=== PATIENT | female | born 1985 | race Caucasian/White ===

== ENCOUNTER → 2020-07-23 15:54 | Outpatient (CLI) | payer OTHER, SELFPAY ==
[2016-07-21 14:47] VITALS: BMI 47.5
[2020-07-27 12:27] LABS: HPV Reflexed? NOT INDICATED
[2020-07-29 07:44] LABS: Chlamydia By Nucleic Acid AMP Negative (Negative)
[2020-07-29 08:03] LABS: Gonococcus By Nucleic Acid AMP Negative (Negative)
== END ==
PROVIDERS: Visit Provider Obstetrics & Gynecology
DX: O20.0 Threatened abortion (principal); Z12.4 Encounter for screening for malignant neoplasm of cervix; Z11.3 Encounter for screening for infections with a predominantly sexual mode of transmission; Z3A.00 Weeks of gestation of pregnancy not specified
CPT/HCPCS: 36415; 84702; 87491; 87591; 88175; G0145

== ENCOUNTER → 2020-08-13 16:56 | Outpatient (CLI) | payer OTHER, SELFPAY ==
[2016-07-21 14:47] VITALS: BMI 47.5
[2020-08-13 17:56] LABS: Color, Urine Straw (Yellow); Glucose, Dipstick Normal (Normal); Ketone-Dipstick Negative (Negative); Leukocyte Esterase-Dipstick Negative /ul (Negative); Nitrite-Dipstick Negative (Negative); Occult Blood-Urine Negative /ul (Negative); Protein-Dipstick Negative (Negative); Urine Bilirubin Dipstick Negative (Negative); Urine Clarity Clear (Clear); Urine Urobilinogen Normal (Normal)
[2020-08-13 18:01] LABS: Absolute Lymphocyte Count 2.96 X10^3/uL (0.83-4.51); Absolute Neutrophil Count 6.5 X10^3/uL (2.0-7.7); Basophil# 0.03 X10^3/uL; Basophil% 0.3 % (0-1); Eosinophil# 0.14 X10^3/uL; Eosinophils% 1.4 % (0-5); Hematocrit 39.4 % (37-47); Hemoglobin 13.1 g/dL (12.0-15.0); Lymphocyte # 2.96 X10^3/ul (4.0); Lymphocyte % 28.7 % (19-41); Mean Corp Hgb Conc 33.2 g/dL (32-36); Mean Corpuscular Volume 96.1 fL (81-99); Mean Platelet Vol. 10.8 fl (6.2-12.0); Monocyte% 5.8 % (0-10); NRBC Flagged by Analyzer 0 % (0-5); Neutrophil # 6.52 X10^3/uL (2.7-7.7); Neutrophil % 63.3 % (47-70); Platelet Count 263 K/mm3 (150-450); RBC Distribution Width CV 12.3 % (11.6-14.6); RBC Distribution Width SD 43.5 fl (35.1-43.9); White Blood Count 10.3 K/mm3 (4.4-11.0)
[2020-08-13 18:33] LABS: Thyroid Stim Hormone (TSH) 6.23 uIU/mL (0.358-3.74)
[2020-08-13 19:04] LABS: Amphetamine Urine VISTA NEGATIVE (<1000 ng/mL); Barbiturate Urine VISTA NEGATIVE (< 200 ng/mL); Benzodiazepine Urine VISTA NEGATIVE (< 200 ng/mL); Cocaine Urine VISTA NEGATIVE (< 300 ng/mL); Ecstacy Urine VISTA NEGATIVE (< 500 ng/mL); Methadone Urine VISTA NEGATIVE (< 300 ng/mL); PCP Urine VISTA NEGATIVE (< 25 ng/mL); THC Urine VISTA NEGATIVE (< 50 ng/mL); Vista UDS pH Range 6
[2020-08-14 01:11] LABS: Prenatal RPR NONREACTIVE (NONREACTIVE)
[2020-08-14 10:22] LABS: HIV - WCH Non-Reactive (Nonreactive); Hepatitis B Surface Antigen Non-Reactive (Nonreactive); Hepatitis C Antibody Non-Reactive (Nonreactive)
[2020-08-14 10:25] LABS: Rubella IgG 212.2 IU/mL
[2020-08-14 12:29] LABS: Free T3 2.2 pg/mL (2.18-3.98); T4 Free Direct 0.88 ng/dL (0.76-1.46)
== END ==
LOC: WOBLAB 17:04
PROVIDERS: Visit Provider Obstetrics & Gynecology
DX: Z34.81 Encounter for supervision of other normal pregnancy, first trimester (principal); E03.9 Hypothyroidism, unspecified
CPT/HCPCS: 36415; 80307; 81002; 84439; 84443; 84481; 85025; 86703; 86762; 86803; 87340

== ENCOUNTER → 2020-12-09 12:59 | Outpatient (CLI) | payer OTHER, SELFPAY ==
[2016-07-21 14:47] VITALS: BMI 47.5
[2020-12-09 13:46] LABS: Mean Corp Hgb Conc 32.4 g/dL (32-36); Mean Corpuscular Hgb 31.3 pg (27.0-32.0); Mean Corpuscular Volume 96.9 fL (81-99); Mean Platelet Vol. 10.7 fl (6.2-12.0); Platelet Count 252 K/mm3 (150-450); RBC Distribution Width CV 12.5 % (11.6-14.6); RBC Distribution Width SD 44.6 fl (35.1-43.9); Red Blood Count 3.51 M/mm3 (4.2-5.4); White Blood Count 12.9 K/mm3 (4.4-11.0)
[2020-12-09 14:29] LABS: Glucose Challenge Gest 1H 50g 116 mg/dL (70-140)
== END ==
PROVIDERS: Visit Provider Obstetrics & Gynecology
DX: Z34.82 Encounter for supervision of other normal pregnancy, second trimester (principal)
CPT/HCPCS: 36415; 82950; 85027

== ENCOUNTER → 2021-02-09 | Outpatient (CLI) | payer OTHER, SELFPAY ==
[2016-07-21 14:47] VITALS: BMI 47.5
== END | disposition home or self-care (01) ==
LOC: LABSPEC 15:42
PROVIDERS: Visit Provider Obstetrics & Gynecology
DX: Z36.85 Encounter for antenatal screening for Streptococcus B (principal)
CPT/HCPCS: 87081

== ENCOUNTER → 2021-02-25 14:09 | Outpatient (CLI) | payer OTHER, SELFPAY | PROVIDERS: Referring Provider Student in an Organized Health Care Education/Training Program; Visit Provider Student in an Organized Health Care Education/Training Program | DX: Z03.818 Encounter for observation for suspected exposure to other biological agents ruled out (principal) | CPT/HCPCS: 87635; C9803; U0002 ==

== ENCOUNTER 2021-02-25 22:22 | Inpatient (IN) | payer OTHER, SELFPAY ==
[2016-07-21 14:47] VITALS: BMI 47.5
[2021-02-25 21:57] VITALS: PULSE 104; O2SAT 97
[2021-02-25 22:00] VITALS: TEMP 36.7; BMI 56.2
[2021-02-25 22:02] VITALS: BP 155/81
[2021-02-25] MEDS: Lactated Ringers 1,000 ML 999 ML IV (22:28)
[2021-02-25 22:36] LABS: ROM Internal Control Test YES-OK TO RESULT pt. (Internal QC); ROM Patient Test POSITIVE (Negative)
--- NOTE | 2021-02-25 23:02 | PCM.HP.BLA ---
History and Physical Date of Admission: 02/25/21 ACOG ANTEPARTUM RECORD - HISTORY AND PHYSICAL (02/25/2021) Name: MARIA SOLIS History of this : This is a 36 year old [id number] presents at 38 wks + 5 days gestation who presents in labor with SROM. OB Physician: Zack Gardner MD [place]'s Physician: ...................................................................... : 1985 Age: 36 Address: [address] [place] [address] Phone: ([phone] ([phone] Insurance Carrier: [facility] [id number] Emergency Contact: ESTEFANI SOLIS [phone] ...................................................................... Final BRITNI: 03/06/21 By Ultrasound: 8 weeks 0 days PARITY: (G-Total Pregnancies P-Fullterm,Premature,Induced AB,Spont AB, Ectopics, Multiple,Living) BRITNI CONFIRMATION: By LMP: 05/30/20 Initial Exam: 03/06/21 By First Ultrasound Exam: 03/01/21 Final BRITNI: 03/06/21 OB PROBLEM LIST: AMA, on Aspirin Desires consult after delivery Hx C/s Desires repeat c/s LGA at 27wk EFW >90% HC >97% AC 94% TSH elevated, but free T4 wnl ALLERGIES: NKA MEDICATIONS: aspirin 81 mg tablet,delayed release 1 PO QD cetirizine 10 mg tablet daily 28 mg-800 mcg tablet daily SOCIAL HISTORY: Smoking - 3/4 PPD ATQ Alcohol Use - denies drinking Diet - Glutten Free/Lactose Sensitive Lifestyle - moderate stress lifestyle and Exercise - active 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 Illicit Drug Use - denies use of street drugs Sexual Activity - Residence - [place] Hours Worked - 35 HRS Spouse-Sig Other Name - Estefani Spouse-Sig Other Occupation - Can Intake Worker Children Name(s) - Shannon(04) PRIOR DELIVERY HISTORY DEL DATE GEST LAB WT LB WT OZ TYPE ANES LABOR TX 05 Jul 16 10 0 0 0 Ectop General No Mar 20 40 28 8 0 C-Sec Epidural No ANTEPARTUM FLOW CHART VISIT GE RTC FU F F NJ U U DATE WK MD WKS HT PN HR M SS BP ED WT NJ GL D EF ST __ ____ ___ __ __ ___ __ __ __ ___ __ __ __ ___ __ February CM 3 38 V + + 118/72 sl 325 tr - February JM 1 37 V on + 130/78 sl 323 tr - Jan 36 JM 1 36 V on + 128/70 1+ 321 tr - Apr 35 CM 1 +U + 128/68 2+ 320 - - 05 Apr 33 JM 2 33 V + + 120/62 sl 317 tr - Jan 14 JM 2 31 V on + 100/60 sl 311 tr - 08 Jan 12 JM 2 29 V + + 138/83 sl 308 ne ne Dec 13 JM 2 28 - + + 120/72 sl 299 - - Nov 08 JM 4 23 - + + 128/68 0 293 tr - 28 Oct 04 JMW 4 20 + + 112/82 sl 286 - - Aug 30 JMW 5 15 + ? 120/78 0 270 ne ne Jul 26 JMW 4 U+ ? 126/84 0 258 ne ne Jul 24 JM 2 8 - on US 122/70 0 248 tr - ANTEPARTUM NOTE(S): Feb 23 2021: PAT packet signed Feb 16 2021: feeling ok Feb 09 2021: GBS today Feb 02 2021: uncomfortable Jan 19 2021: uncomfortable, mild edema Jan 05 2021: see note Dec 22 2020: Dec 09 2020: Nov 10 2020: see note Oct 13 2020: US- its a girl, Watch Weight Sep 10 2020: Declines AFP, Watch Weight Aug 13 2020: Doing Well Jul 25 2020: see note COMPREHENSIVE ANTEPARTUM NOTE(S): Feb 23 2021: 38/3w visit. Hx of LGA - EFW 84%tile today. BPP 05/24. AMA. Planned for repeat c/s 03/[address] Gardner. Consents signed. F/u 2w Post op. CM Feb 23 2021: Maria is here for visit/Pre-op. Consents are signed, PAT packet provided, Covid order sent and Ensure drink provided with instructions. LMT Feb 16 2021: More uncomfortable but no specific complaints or concerns today. C/S scheduled for 03/02. LMT Feb 16 2021: 37wk, GBS neg. BPP today 05/24, LGA for BPP each visit. Repeat c/s at 39wks 03/02/21. JM Feb 12 2021: H taken to OB. tkg Feb 09 2021: GBS today. She relates edema was worse with support hose so not using those. She is uncomfortable but no specific complaints. LARC declined today. LMT Feb 09 2021: 36wk, AMA and LGA BPP 05/24. For weekly BPP. GBS collected today. Feb 02 2021: Maria is here for visit. Increased edema and encouraged her to try support hose, OTC ok to see if this helps a little. Reviewed FM, discomforts, and dangers. GBS next visit. LMT Feb 02 2021: 35/3w. Class III obesity - growth today >97%tile. BPP 05/24. F/u 1w with weekly BPP. CM Jan 19 2021: Maria is here for visit. She is uncomfortable, noting some mild edema. No proteinuria or elevated blood pressure noted today. She is encouraged to have Tdap today and information provided on how to obtain. LMT Jan 19 2021: 33wk, repeat c/s scheduled for 03/02/21. For growth u/s with LGA on last u/s at next visit, then BPP qwk, all scheduled. Jan 05 2021: Maria is here for visit. She is uncomfortable at this point, snoring more, uncomfortable and increased edema after eating salty foods. Reviewed FM, PROM, PTL. Chart with history is updated. LMT Jan 05 2021: 31wk, u/s to for LGA on last visit and today again LGA EFW 2325g >90% HC 97.3% AC 93.3%, vertex. Will repeat growth u/s in 4 weeks, then qwk BPP, all u/s scheduled today. For repeat c/s at 39wks, will send to schedule. Dec 22 2020: Maria is here today for PNV. States she is feeling well with good FM. Having some sl swelling in hands and feet. No concerns for today. Urine neg/neg. LSS Dec 22 2020: 29wk, 1hr GTT wnl. LGA at 27wk u/s. For repeat u/s at next visit. Pt with issues last , desires consult this after delivery. Dec 09 2020: Maria and SO are here for US and visit. Feeling well. Rings sl tight but can remove them. Baby active. Office Classes suggested and WP virtual tour as last baby is 16 yo. Brochure given. PRABHJOT. Dec 09 2020: 27wk, u/s today with completed anatomy views. LGA EFW >90% HC >97% AC 94%, repeat growth u/s in 4 weeks. 1hr GTT today. JM Nov 10 2020: Maria is here for visit. She relates that she occ feels baby low like its in her vagina. This is intermittent. Delivered full-term with her last baby by C/S for FTP. She knows that she needs u/s at next visit for repeat anatomy views. She is given glucola with instructions. Reviewed Influenza and Tdap, LMT Nov 10 2020: 23wk, for repeat u/s at next visit for full anatomy views. 1hr GTT next visit. Pt desires repeat c/s. JM Oct 13 2020: Maria is here for a PNV. Good FM. Sl edema in ankles. U/S today reveals baby is a girl. No concerns expressed at this time. MK Sep 10 2020: Maria is here for PNV. States she feels much better than last visit. No N/V. Questionable FM. No vag drainage or cramping. No edema noted but states she occ will sell in feet/legs by end of day. Urine dipped neg and neg. No concerns. LSS Aug 13 2020: You is here for PNV. Had US today. Is unsure if she has felt FM. No edema noted today but says her feet do swell slightly by end of day. She drinks a gallon of water a day. Not having any N/V. Genetic packet given. Papers sigened. No questions or concerns for today. LSS Jul 25 2020: Maria is here for u/s for viability. She states no more bleeding noted. She does note occ brownish discharge with BM. PNV upsetting stomach, could try gummy. LMT Jul 25 2020: 35yo at 8wk0d with FINAL BRITNI 03/06/21 by 8wk U/s. Pt with bleeding in early , hx of ectopic. Not with brown discharge. U/s reassuring, IUP. AMA, Rx ASA sent. Declines genetic screening. Hx of C/s for failure to progress discussed TOLAC vs R C/S pt undecided. JM Jul 23 2020: Maria is being seen for missed menses. . 35 years old. Smoker, ATQ! UPT in office is positive. LMP 05/30/20. Pt is about 7 weeks and 5 days. BRITNI 03/06/20. Pt states she had bleeding and a dark clot07/18/20 when urinating as well as some spotting before and after using the restroom. She states with bowel movements she will have some bleeding as well. Pt states that when taking that she Jul 23 2020: Thinks she may have miscarried last week. REVIEW OF SYSTEMS: GENERAL - Denies fever, or chills SKIN - Denies rash, new skin lesions, or change in moles EYES - Denies blurred vision, or change in visual acuity EARS - Denies ear pain, or difficulty hearing NOSE - Denies nasal congestion, discharge, or bleeding MOUTH - Denies sore throat, or difficulty swallowing NECK - Denies pain or swelling RESPIRATORY - Denies shortness of breath, cough, wheezing CARDIOVASCULAR - Denies palpitations, chest pain, orthopnea, PND, peripheral edema, syncope or claudication GASTROINTESTINAL - Denies nausea, vomiting, diarrhea, constipation, Denies abdominal pain, melena and or bright red blood GENITOURINARY - Denies dysuria, frequency of urination, urgency, or hesitancy MUSCULOSKELETAL - Denies joint or muscle pain, or back pain NEUROLOGICAL - Denies localized numbness, weakness, or tingling PSYCHIATRIC - Denies depression, anxiety, substance abuse or suicide attempts ENDOCRINE - Denies heat or cold intolerance, weight loss or gain, increasing thirst HEMATO-IMMUNOLOGIC - Denies easy bruising, bleeding, oral ulcerations or recurrent infections GENETICS SCREENING: Age 35+ years: Yes Thalassemia: No Neural Tube Defect: No Down Syndrome: No JEREMIAH-SACHS: No Sickle Cell Disease: No Hemophilia: No Musc. Dystrophy: No Cystic Fibrosis: No-declines screening Fidel Chorea: No Mental Retardation: No Fragile X: No Other genetic: No Other defects: No SABs/still births: No Drugs since LMP: No Comments: ectopic INFECTION HISTORY: High risk AIDS: No High risk Hepatitis: No Exposed to TB: No Exposed to Herpes: No Rash/viral illness since LMP: No History of STD: No MENSTRUAL HISTORY: *Menses Amount/Duration: 5 daysMenses Regularity: RegularFrequency: 28Menarche (Age Onset): 11* PAST SUMMARY: PARITY: 1. Total Pregnancies............ 3 2. Full Term Pregnancies........ 1 3. Premature.................... 0 4. Abortions - Induced.......... 0 5. Abortions - Spontaneous...... 0 6. Ectopics..................... 1 7. Multiple Births.............. 0 8. Living Children.............. 1 PAST #1: Date of :.................. 03/25/04 Gestation Weeks:................ 40 Length of labor(hours):......... 28 Sex:............................ F Weight-lbs:............... 8 Weight-oz:................ 0 Type of Delivery:............... C-Sect Type of Anesthesia:............. Epidural Place of Delivery:.............. [place] Treatment of Labor?:.... No Comment: PAST #2: Date of :.................. 07/21/16 Gestation Weeks:................ 10 Length of labor(hours):......... 0 Sex:............................ Weight-lbs:............... 0 Weight-oz:................ 0 Type of Delivery:............... Ectopic Type of Anesthesia:............. General Place of Delivery:.............. [place] Treatment of Labor?:.... No Comment: ECTOPIC- R TUBE REMOVED PHYSICAL EXAMINATION General Appearence: 36 yo female in no acute distress Vital Signs: AF, VSS Heart: RRR without rubs or gallops Lungs: CTA x 2 Breasts: deferred Abdomen: gravid Pelvis: Cervix: Presentation: cephalic Station: Fetus: Size: AGA Movement: present Heart: present LAB TEST(S) ORDERED SINCE:06/09/20 08/14/2020 T4 FREE DIRECT 08/14/2020 RUBELLA IGG 08/14/2020 RPR 08/14/2020 HIV - [facility] 08/14/2020 HEPATITIS C ANTIBODY 08/14/2020 HEPATITIS B SURFACE ANTIGEN 08/14/2020 FREE T3 08/13/2020 URINE DRUG SCREEN (VISTA) 08/13/2020 URINALYSIS, ROUTINE (DIPSTICK) 08/13/2020 THYROID STIM HORMONE (TSH) 08/13/2020 T AND S-NO CHARGE W/PNP 08/13/2020 CBC W/DIFF, AUTOMATED 07/29/2020 CHLAMYDIA/GC IGLESIA APTIMA 07/27/2020 PAP IG W/REFLEX HR HPV APTIMA 07/23/2020 HCG TITER QUANT., SERUM 02/25/2021 COVID 19, IGLESIA WC(RT COLLECT) 02/25/2021 (ROM) RUPTURE OF MEMBRANES 02/12/2021 RULE OUT BETA STREP (GRP. B) 12/09/2020 GLUCOSE CHALLENGE GEST 1H 50G 12/09/2020 CBC-COMPLETE BLOOD CNT NO DIFF == ==== Order Observation Description Value Ref_Range A* Site == ==== (ROM) RUPTURE O NOTE MOORE (ROM) RUPTURE O ROM POSITIVE Negative A ML Amniotic fluid present indicates rupture of Membranes. [facility]21 2236 Sandra Quintanillaheather. REPORT READ BACK BY SAME . COVID 19, IGLESIA NOTE MOORE COVID 19, IGLESIA COVID-19,IGLESIA Not Detected Not Detect ML Normal Reference Range: Not Detected Method:(RT-PCR) real-time reverse transcriptase PCR [employer] Drive [employer] Instrument *The Food and Drug Administration (FDA) has issued an Emergency Use Authorization (EAU) for the Drive YOYO SARS-CoV-2 Assay for the rapid detection of the virus that causes COVID-19. This test has been validated, but the FDAs independent review of this validation is pending. *Negative results do not preclude infection and should not be used as the sole basis for treatment or patient management. Optimum specimen types and timing for peak viral levels during infections caused by SARS-CoV-2 have not been determined. Collection of multiple specimens from the same patient may be necessary to detect the virus. The possibility of a false negative result should be considered if the patient has clinical presentation or has had recent exposure. RULE OUT BETA S NOTE MOORE GLUCOSE CHALLEN NOTE MOORE GLUCOSE CHALLEN GLU GEST 50G 1H 116 mg/dL 70-140 ML CBC-COMPLETE BL NOTE MOORE CBC-COMPLETE BL WBC 12.9 K/mm3 4.4-11.0 H ML CBC-COMPLETE BL RBC 3.51 M/mm3 4.2-5.4 L ML CBC-COMPLETE BL HGB 11.0 g/dL 12.0-15.0 L ML CBC-COMPLETE BL HCT 34.0 37-47 L ML CBC-COMPLETE BL MCV 96.9 fL 81-99 ML CBC-COMPLETE BL MCH 31.3 pg 27.0-32.0 ML CBC-COMPLETE BL MCHC 32.4 g/dL 32-36 ML CBC-COMPLETE BL RDW CV 12.5 11.6-14.6 ML CBC-COMPLETE BL RDW SD 44.6 fl 35.1-43.9 H ML CBC-COMPLETE BL PLT 252 K/mm3 150-450 ML CBC-COMPLETE BL MPV 10.7 fl 6.2-12.0 ML T4 FREE DIRECT NOTE MOORE T4 FREE DIRECT T4 FREE DIRECT 0.88 ng/dL 0.76-1.46 ML FREE T3 NOTE MOORE FREE T3 FREE T3 2.2 pg/mL 2.18-3.98 ML HEPATITIS C ANT NOTE MOORE HEPATITIS C ANT HEPATITIS C AB Non-Reactive Nonreactive ML Non Reactive: < 0.8 Equivocal: >/= 0.8 to < 1.0 Reactive: >/= 1.0 The CDC recommends that a reactive/equivocal HCV antibody result be followed up by the HCV Nucleic Acid Amplification test (006311) HEPATITIS B LESA NOTE MOORE HEPATITIS B LESA HEPB SURFACE AG Non-Reactive Nonreactive ML HIV - WCH NOTE MOORE HIV - W[facility] HIV - [facility] Non-Reactive Nonreactive ML RUBELLA IGG NOTE MOORE RUBELLA IGG RUBELLA IGG 212.2 IU/mL ML Antibody results Interpretation of Immune Status < 5 IU/ml Presumed Non-immune 5 - < 10 IU/ml Equivocal > or = 10 IU/ml Presumed Immune RPR NOTE MOORE RPR RPR NONREACTIVE NONREACTIVE ML URINE DRUG SCRE NOTE MOORE URINE DRUG SCRE TO BE CONFIRMED ML CONFIRMATORY TESTING FOR ALL POSITIVE URINE DRUG SCREEN RESULTS WILL ONLY BE SENT OUT UPON PHYSICIAN ORDER. VISTA Urine Drug Screen methods provide only preliminary analytical test results. A more specific alternate chemical method must be used in order to obtain a confirmed analytical result. Gas chromatography/mass spectrometery (GC/MS) is the preferred confirmatory method. Clinical consideration and professional judgement should be applied to any drug of abuse test result, particularly when preliminary positive results are used. URINE TCA TESTING MUST BE ORDERED SEPARATELY. USE TEST MNEMONIC: UTCA URINE DRUG SCRE VISTA UDS PH 6 ML URINE DRUG SCRE AMPHETAMINES NEGATIVE <1000 ng/mL ML URINE DRUG SCRE BARBITIURATES NEGATIVE < 200 ng/mL ML URINE DRUG SCRE BENZODIAZIPINE NEGATIVE < 200 ng/mL ML URINE DRUG SCRE COCAINE NEGATIVE < 300 ng/mL ML URINE DRUG SCRE ECSTACY NEGATIVE < 500 ng/mL ML URINE DRUG SCRE METHADONE NEGATIVE < 300 ng/mL ML URINE DRUG SCRE OPIATES NEGATIVE < 300 ng/mL ML URINE DRUG SCRE PCP NEGATIVE < 25 ng/mL ML URINE DRUG SCRE THC NEGATIVE < 50 ng/mL ML Reason for Type AND Screen/Red Cells: Surgery? [facility]~[address] [place], [address]~ T AND BLOOD TYPE GEL O POSITIVE N ML T AND AB SCREEN GEL NEGATIVE N ML THYROID STIM HO NOTE MOORE THYROID STIM HO TSH 6.23 uIU/mL 0.358-3.74 H ML CBC W/DIFF, AUT NOTE MOORE CBC W/DIFF, AUT WBC 10.3 K/mm3 4.4-11.0 ML CBC W/DIFF, AUT RBC 4.10 M/mm3 4.2-5.4 L ML CBC W/DIFF, AUT HGB 13.1 g/dL 12.0-15.0 ML CBC W/DIFF, AUT HCT 39.4 % 37-47 ML CBC W/DIFF, AUT MCV 96.1 fL 81-99 ML CBC W/DIFF, AUT MCH 32.0 pg 27.0-32.0 ML CBC W/DIFF, AUT MCHC 33.2 g/dL 32-36 ML CBC W/DIFF, AUT RDW CV 12.3 % 11.6-14.6 ML CBC W/DIFF, AUT RDW SD 43.5 fl 35.1-43.9 ML CBC W/DIFF, AUT PLT 263 K/mm3 150-450 ML CBC W/DIFF, AUT MPV 10.8 fl 6.2-12.0 ML CBC W/DIFF, AUT NEUT% 63.3 % 47-70 ML CBC W/DIFF, AUT LY% 28.7 % 19-41 ML CBC W/DIFF, AUT MONO% 5.8 % 0-10 ML CBC W/DIFF, AUT EO% 1.4 % 0-5 ML CBC W/DIFF, AUT BASO% 0.3 % 0-1 ML CBC W/DIFF, AUT IM GRAN % 0.500 % 0.0-0.9 ML IG% - Immature Granulocytes (promyelocytes, myelocytes and metamyelocytes) > 1% indicates that a LEFT SHIFT is Present. CBC W/DIFF, AUT ABSOLUTE NEUT 6.5 X10 3/uL 2.0-7.7 ML CBC W/DIFF, AUT ABSOLUTE LYMPH 2.96 X10 3/uL 0.83-4.51 ML CBC W/DIFF, AUT NRBC, FLAGGED 0 % 0-5 ML URINALYSIS, ROU NOTE MOORE URINALYSIS, ROU COLOR Straw Yellow ML URINALYSIS, ROU CLARITY Clear Clear ML URINALYSIS, ROU GLUCOSE, UR Normal mg/dl Normal ML URINALYSIS, ROU BILIRUBIN URINE Negative mg/dL Negative ML URINALYSIS, ROU KETONE UR Negative mg/dl Negative ML URINALYSIS, ROU SP.GR. DIPSTX 1.010 1.002-1.030 ML URINALYSIS, ROU PH UR 7.0 5.0 - 8.0 ML URINALYSIS, ROU PROT DIPSTX Negative mg/dl Negative ML URINALYSIS, ROU UROBILI Normal mg/dl Normal ML URINALYSIS, ROU NITRITE UR Negative Negative ML URINALYSIS, ROU OCCULT BLOOD-UR Negative /ul Negative ML URINALYSIS, ROU LEUK ESTERASE Negative /ul Negative ML HCG TITER QUANT NOTE MOORE HCG TITER QUANT HCG QUANT. 61015 mIU/mL 1-3 H ML hCG levels with Gestational Age Gestational Age hCG mIU/mL (IU/L) 0.2 - 1 week 5 - 50 1-2 weeks 50 - 500 2-3 weeks 100 - 5000 3-4 weeks 500 - 48855 4-5 weeks 1000 - 18313 5-6 weeks 56275 - 100,000 6-8 weeks 46598 - 200,000 2-3 months 45591 - 100,000 CHLAMYDIA/GC NA NOTE MOORE CHLAMYDIA/GC NA CHLAMY,NUC ACID Negative Negative LC CHLAMYDIA/GC NA GC BY NUC ACID Negative Negative LC Performed at: =[address] [id number] Professor Of Counseling: Karen Felton MD, Phone: [phone] PAP IG W/REFLEX NOTE MOORE PAP IG W/REFLEX DIAGN Comment . LC NEGATIVE FOR INTRAEPITHELIAL LESION OR MALIGNANCY. PAP IG W/REFLEX ADEQ Comment . LC Satisfactory for evaluation. Endocervical and/or squamous metaplastic cells (endocervical component) are present. PAP IG W/REFLEX PERFORM Comment . Kimberly Medina, Pelt Salter (ASCP) PAP IG W/REFLEX TEST METHOD Comment . This liquid based ThinPrep(R) pap test was screened with the use of an image guided system. PAP IG W/REFLEX COMM . . LC PAP IG W/REFLEX PAPSMR Comment . The Pap smear is a screening test designed to aid in the detection of premalignant and malignant conditions of the uterine cervix. It is not a diagnostic procedure and should not be used as the sole means of detecting cervical cancer. Both false-positive and false-negative reports do occur. PAP IG W/REFLEX HPV RFLX Comment . The HPV DNA reflex criteria were not met with this specimen result therefore, no HPV testing was performed. Performed at: [address] [id number] Professor Of Counseling: Karen Felton MD, Phone: [phone] Group B Beta Streptococcus is not isolated. == ==== Impression /Plan: 38 wks + 5 days intrauterine with prior in labor with SROM. Preparations in progress for delivery.
[2021-02-25] MEDS: Sodium Citrate/Citric Acid 30 ML UDC PO (23:18)
--- NOTE | 2021-02-25 23:19 | OP.PCM_ITS ---
Problems Associated Problem List Diagnoses (1) Delivered by delivery following previous delivery: Report of Operation Date of Procedure: 02/25/21 Pre-Operative Diagnosis: Prior with Spontaneous Rupture of Membranes in Labor Post-Operative Diagnosis: Prior with Spontaneous Rupture of Membranes in Labor; Adhesions Surgery/Procedure Performed:: Repeat Low Transverse Section; Lysis of Adhesions Description of Surgical Findings:: Viable Female with Apgars 9/9 in an OA presentation with clear amniotic fluid and normal 3-vessel placenta. Dense adhesions of uterus to anterior abdominal wall. quality assurance qa lab analyst: Whitley Grande Type of Anesthesia: Spinal (with Duramorph) Anesthesiologist: Orlin Cantu Specimen's removed: Placenta to WP Drains: Jara to SD Estimated Blood Loss (mL): 750 cc Fluids Replaced: Crystalloid Description of Procedure: Surgeon: Zack Gardner MD, FACOG Indication: This is a 36-year-old who presents for her second at 38+ weeks gestation after presenting to labor and delivery this evening with spontaneous rupture of membranes. care has otherwise been uneventful. The patient has been counseled regarding the risk and indications of this procedure including the possibility of bleeding infection and injury to surrounding structures such as bowel bladder. All questions were answered. Procedure: Patient was taken to the operating room where after spinal anesthesia was placed, the patient was prepped and draped in usual sterile fashion and a Jara catheter was placed. The abdomen was entered through the patient's prior Pfannenstiel incision and peritoneum was entered bluntly. Upon entering the peritoneal cavity the uterus was noted to be densely adhered to the anterior abdominal wall and was opened with blunt dissection via low transverse incision. head was easily delivered onto the operative field the nose mouth and oropharynx were bulb suctioned. Subsequently a viable female infant was born with Apgars of 9/9. The infant was noted to cry move all extremities vigorously on the operative field. The umbilical cord was doubly clamped and ligated and handed to the nursery personnel who were present for the delivery. Placenta was delivered and noted to be 3 vessels and normal. Uterus was exteriorized after lysing adhesions and remaining placental tissue was removed. The uterus was then closed in 2 layers first with running locked 0 Vicryl suture followed by a second imbricating layer with 0 Vicryl suture. 0 Vicryl suture was then used in a horizontal mattress interrupted fashion to affect final hemostasis of the uterine incision line. The anterior uterine wall was oversewn with 0 Vicryl suture in multiple places to achieve hemostasis using horizontal mattress and [id number] sutures. Normal fallopian tubes and ovaries were visualized and the uterus was returned to the pelvis. Dom was placed across the uterine incision line to help with postoperative oozing and hemostasis was noted and rectus abdominis muscles were reapproximated in the midline with interrupted Number 0 Vicryl suture in a horizontal mattress fashion. Fascia was closed with running Number 1 PDS Strata fix suture. Subcutaneous tissue was irrigated with copious amounts of saline solution and then closed with running 3-0 Vicryl suture. Skin was closed with 4-0 monocryl suture in a running subcuticular fashion. Steri strips and a Mepilex dressing were placed across the incision. The patient tolerated the procedure well and was taken to the recovery room in satisfactory condition. Sponge, needle, and instrument counts were all reportedly correct. EBL was 750 cc. Ancef 3 gms IV was given prior to the procedure. Grafts/Implants Used: None Complications None Admit VTE Documentation VTE Present on Admission: Yes VTE Mechan Device Prophylaxis: SCD's VTE Pharm Prophylaxis ordered?: Yes
[2021-02-25] MEDS: Acetaminophen 500 MG Tablet 1000 MG PO (23:29)
[2021-02-25 23:37] LABS: Hematocrit 36.7 % (37-47); Mean Corp Hgb Conc 32.7 g/dL (32-36); Mean Corpuscular Hgb 30.5 pg (27.0-32.0); Mean Corpuscular Volume 93.4 fL (81-99); Mean Platelet Vol. 10.7 fl (6.2-12.0); Platelet Count 281 K/mm3 (150-450); RBC Distribution Width CV 13.8 % (11.6-14.6); RBC Distribution Width SD 46.3 fl (35.1-43.9); Red Blood Count 3.93 M/mm3 (4.2-5.4); White Blood Count 13.1 K/mm3 (4.4-11.0)
[2021-02-25 23:38] LABS: Absolute Neutrophil Count 9.7 X10^3/uL (2.0-7.7); Basophil% 0.2 % (0-1); Eosinophils% 1.4 % (0-5); Lymphocyte % 17.5 % (19-41); Monocyte# 0.87 X10^3/uL; Monocyte% 6.6 % (0-10); Neutrophil # 9.65 X10^3/uL (2.7-7.7); Neutrophil % 73.6 % (47-70)
[2021-02-25 23:39] LABS: Basophil# 0.02 X10^3/uL; Eosinophil# 0.19 X10^3/uL; NRBC Flagged by Analyzer 0 % (0-5)
[2021-02-26] VITALS (24 sets, daily range): BP systolic 103–155; BP diastolic 46–91; PULSE 75–98; RESP 16–21; TEMP 36.1–36.8; O2SAT 95–100
--- NOTE | 2021-02-26 00:48 | PCM.DC ---
Discharge Instructions Diet Discharge Diet: No restrictions Activity Discharge Activity: May Not Drive (for 2 weeks), May not drive while taking narcotic pain medications., May Shower and May Take a Tub Bath (in 7 days) May resume sexual activity in: 4-6 weeks Lifting Restrictions: 20-25 pounds fopr 6 weeks Dressing / Incision Call your doctor if your incision/area has: Continuous Slow Oozing, Sudden Increased Bleeding, Increased Pain/ Swelling, Increased Redness and Foul Smelling Discharge Call your doctor if you observe: Fever of 101 or Higher, Inability to urinate, Inability to have a bowel movement and Using more than one pad per hour Follow Up Care Please Follow Up With: Zack Gardner MD When: Call [phone] for appointment to be seen in 2 weeks. Test Results: Test results from this visit will be discussed in further detail at your follow-up appointment, if applicable. Discharge Plan Admission Admit Date/Time: 02/25/21 22:22 Primary Reason for Your Visit: Repeat Attending Provider: Zack Gardner Primary Care Provider: Care Physician,Elba Primary Instructions Forms: Information Patient Instructions: After a Discharge Orders/Prescriptions Prescriptions: New oxycodone 5 mg capsule 5 mg PO Q6H PRN (Reason: pain) 7 Days Qty: 14 RF: 0 docusate sodium [Colace] 100 mg capsule 100 mg PO BID PRN (Reason: constipation) Qty: 60 RF: 1 Continued Vitamin 1 EACH tablet 1 ea PO DAILY RF: 0 Discontinued aspirin 81 mg Tablet 81 mg PO DAILY RF: 0 Referrals / Follow Up: Care Physician,Elba Primary [Primary Care Provider] - Disposition Disposition (needs filled in before D/C Order can be placed): Home, self care
[2021-02-26] MEDS: Oxytocin 30 units/NS 500 ml 30 UNITS/500 ML IV.SOLN 167 UNITS IV (01:14)
[2021-02-26] MEDS: 0.9% Saline Lock 10 ML Syringe IV ×3 (01:55→20:06)
[2021-02-26] MEDS: Ketorolac 30 MG/ML Syringe IV ×4 (01:55→20:07)
[2021-02-26] MEDS: Lactated Ringers 1,000 ML 100 ML IV (04:21)
[2021-02-26] MEDS: Acetaminophen 500 MG Tablet 1000 MG PO ×3 (07:25→18:47)
[2021-02-26] MEDS: Cefazolin 1 GM/50 ML BAG IV ×2 (07:59→15:46)
[2021-02-26 08:25] LABS: Hematocrit 30.7 % (37-47); Hemoglobin 10.1 g/dL (12.0-15.0); Mean Corp Hgb Conc 32.9 g/dL (32-36); Mean Corpuscular Hgb 31.3 pg (27.0-32.0); Mean Platelet Vol. 10.4 fl (6.2-12.0); Platelet Count 232 K/mm3 (150-450); RBC Distribution Width CV 13.9 % (11.6-14.6); RBC Distribution Width SD 48.6 fl (35.1-43.9); Red Blood Count 3.23 M/mm3 (4.2-5.4); White Blood Count 16.3 K/mm3 (4.4-11.0)
--- NOTE | 2021-02-26 09:16 | PN.OBGYN_ITS ---
Subjective Subjective Patient with no overnight complaints Objective Data Objective Data Vital Signs: Vital Signs Temp Pulse Resp BP Pulse Ox 97.5 F L 94 18 126/76 H 97 02/26/21 07:28 02/26/21 07:28 02/26/21 07:28 02/26/21 07:28 02/26/21 07:28 Oxygen Delivery Method Room Air Weight: 328 lb 0.765 oz Body Mass Index (BMI) 56.2 Intake & Output: Intake and Output for Last 24 Hours 02/24/21 02/25/21 02/26/21 23:59 23:59 23:59 Intake Total 1000 / 1000 1415 / 1415 Output Total 275 / 275 Balance 1000 / 1000 1140 / 1140 Lab / Micro Data Result Diagrams: 02/26/21 08:10 Labs: Laboratory Results - last 24 hr 02/25/21 02/25/21 02/25/21 22:10 22:28 22:28 WBC 13.1 H RBC 3.93 L Hgb 12.0 Hct 36.7 L MCV 93.4 MCH 30.5 MCHC 32.7 RDW Std Deviation 46.3 H RDW Coeff of Renetta 13.8 Plt Count 281 MPV 10.7 Immature Gran % (Auto) 0.700 Neut % (Auto) 73.6 H Lymph % (Auto) 17.5 L [place] % (Auto) 6.6 Eos % (Auto) 1.4 Baso % (Auto) 0.2 Absolute Neuts (auto) 9.7 H Absolute Lymphs (auto) 2.30 Nucleated RBC % 0 Vag Amniotic Fld Detect POSITIVE H Blood Type O POSITIVE Antibody Screen NEGATIVE 02/26/21 08:10 WBC 16.3 H RBC 3.23 L Hgb 10.1 L Hct 30.7 L MCV 95.0 MCH 31.3 MCHC 32.9 RDW Std Deviation 48.6 H RDW Coeff of Renetta 13.9 Plt Count 232 MPV 10.4 Immature Gran % (Auto) Neut % (Auto) Lymph % (Auto) [place] % (Auto) Eos % (Auto) Baso % (Auto) Absolute Neuts (auto) Absolute Lymphs (auto) Nucleated RBC % Vag Amniotic Fld Detect Blood Type Antibody Screen Physical Exam Const alert, oriented x3 and no apparent distress HEENT normocephalic Head and Scalp: atraumatic Resp normal respiratory effort, no retractions and no use of accessory muscles Extremity normal to inspection, full ROM and no clubbing, cyanosis or edema Psych mental status grossly normal, affect normal, speech normal and activity/motor behavior normal Assessment & Plan (1) Delivered by delivery following previous delivery: PLAN: Postoperative day 1 status post repeat section. Pain well controlled. Possibly discharge home tomorrow
[2021-02-26] MEDS: Senna/Docusate Sodium 1 Tablet PO (10:45)
[2021-02-26] MEDS: Enoxaparin 40 MG/0.4 ML Syringe SC (10:45)
[2021-02-27 00:33] VITALS: BP 141/52; PULSE 85; RESP 18; TEMP 36.9; O2SAT 99
[2021-02-27] MEDS: Acetaminophen 500 MG Tablet 1000 MG PO ×2 (00:41→08:46)
[2021-02-27] MEDS: Ibuprofen 600 MG Tablet PO ×2 (01:43→08:47)
[2021-02-27 04:30] VITALS: BP 140/67; PULSE 72; RESP 18; TEMP 37.2
[2021-02-27 08:40] VITALS: BP 117/41; PULSE 82; RESP 18; TEMP 36.7; O2SAT 94
[2021-02-27] MEDS: Enoxaparin 40 MG/0.4 ML Syringe SC (08:46)
--- NOTE | 2021-02-27 09:34 | PN.OBGYN_ITS ---
Subjective Subjective Patient without complaints. Tolerating diet well. Positive flatus. Breast- feeding going well. Wants to go home today. Objective Data Objective Data Vital Signs: Vital Signs Temp Pulse Resp BP Pulse Ox 98.0 F 82 18 117/41 L 94 02/27/21 08:40 02/27/21 08:40 02/27/21 08:40 02/27/21 08:40 02/27/21 08:40 Oxygen Delivery Method Room Air Weight: 328 lb 0.765 oz Body Mass Index (BMI) 56.2 Intake & Output: Intake and Output for Last 24 Hours 02/25/21 02/26/21 02/27/21 23:59 23:59 23:59 Intake Total 1000 / 1000 3280 / 3280 Output Total 3075 / 3075 Balance 1000 / 1000 205 / 205 Lab / Micro Data Result Diagrams: 02/26/21 08:10 Assessment & Plan (1) Delivered by delivery following previous delivery: COMMENT: Doing well postoperative day #2 status post repeat . Will discharge to home with routine instructions.
== END 2021-02-27 14:30 | disposition home or self-care (01) | DRG 788 ==
LOC: WPOUT 22:24 → WP 22:24
PROVIDERS: Admitting Provider Obstetrics & Gynecology; Visit Provider Obstetrics & Gynecology
DX: O34.211 Maternal care for low transverse scar from previous cesarean delivery (principal); Z37.0 Single live birth; Z3A.38 38 weeks gestation of pregnancy; O36.63X0 Maternal care for excessive fetal growth, third trimester, not applicable or unspecified; O99.334 Smoking (tobacco) complicating childbirth; F17.200 Nicotine dependence, unspecified, uncomplicated; K66.0 Peritoneal adhesions (postprocedural) (postinfection); E66.01 Morbid (severe) obesity due to excess calories; O99.214 Obesity complicating childbirth
CPT/HCPCS: 59025; 59050; 84112; 85025; 85027; 86850; 86900; 86901; 99218; 99251; J7120; A4216; G0378; G0463

== ENCOUNTER → 2021-03-10 09:15 | Outpatient (CLI) | payer OTHER, SELFPAY ==
[2021-02-25 22:00] VITALS: BMI 56.2
[2021-03-10 11:10] LABS: Hematocrit 33.2 % (37-47); Hemoglobin 10.6 g/dL (12.0-15.0); Mean Corp Hgb Conc 31.9 g/dL (32-36); Mean Corpuscular Hgb 30.9 pg (27.0-32.0); Mean Corpuscular Volume 96.8 fL (81-99); Mean Platelet Vol. 9.9 fl (6.2-12.0); Platelet Count 469 K/mm3 (150-450); RBC Distribution Width CV 13.7 % (11.6-14.6); RBC Distribution Width SD 48.3 fl (35.1-43.9); Red Blood Count 3.43 M/mm3 (4.2-5.4)
[2021-03-10 11:24] LABS: ALB/GLOB Ratio 0.8 RATIO (0.9-2.4); AST(SGOT) 29 U/L (15-37); Alanine Aminotransfer ALT/SGPT 38 U/L (13-56); Alkaline Phosphatase 93 U/L (45-117); Anion Gap 6 (5-15); BUN 7 mg/dL (7-18); BUN/Creat Ratio 9.6 RATIO (10-20); Calcium,Total 8.8 mg/dL (8.5-10.1); Chloride 106 mmol/L (98-107); Creatinine, Serum 0.73 mg/dL (0.55-1.02); EST Glomerular Filtration Rate 95 mL/min (>60); Est Glom Filt Rate - Afr Amer 115 mL/min (>60); Globulin 3.9 g/dL (2.2-4.2); Glucose 72 mg/dL (74-106); Potassium 4.1 mmol/L (3.5-5.1); Protein, Total 6.9 g/dL (6.4-8.2); Sodium Level 142 mmol/L (136-145)
== END ==
PROVIDERS: Visit Provider Obstetrics & Gynecology
DX: M79.89 Other specified soft tissue disorders (principal)
CPT/HCPCS: 36415; 80053; 85027